=== PATIENT | male | born 1990 | race Caucasian/White ===

== ENCOUNTER 2016-08-01 02:44 | Emergency (ER) | payer OTHER ==
--- NOTE | 2016-08-01 19:08 | ER ---
ADMIT: 08/01/2016 RM/LOC: ER [facility] MR#: [id number] [place], [place] [id number] LITA ER[address] [place] [address] Emergency Room Report SEX: M AGE: 26 : 1990 DATE: 08/01/2016 The patient is a 26-year-old male, who came to the ER with 2 days of nausea, vomiting, and diarrhea. Nausea and vomiting are nonbloody and nonbilious and non-feculent. Diarrhea is copious, watery, and nonbloody. The patient also has a history of acid reflux and heartburn and states that he had epigastric pain, which was crampy during the last 2 days. The patient has a recent hospitalization for sinus problem. The patient in the ER, received GI cocktail, which resolved epigastric abdominal pain. On physical examination, head and neck are normal. Mucous membranes are wet. Chest is clear. abdomen is soft. The rest of the physical exam is noncontributory. The patient was positive for H pylori and also for which he received prescription for Biaxin and also amoxicillin for 7 days. The patient was also later came back positive for C diff, was contacted and a prescription for 10 days of Flagyl was prescribed. The patient is not dehydrated and can be followed as an outpatient. Hamlet Goldman MD/ shivani JOB #: [id number] CC: Hamlet Goldman MD, Attending Physician Steven Jose MD, Family Physician
== END 2016-08-01 04:51 | disposition home or self-care (01) ==
LOC: ER 02:44
DX: A04.8 Other specified bacterial intestinal infections (principal); B96.81 Helicobacter pylori [H. pylori] as the cause of diseases classified elsewhere; Z79.899 Other long term (current) drug therapy